=== PATIENT | female | born 1950 | race Caucasian/White ===

== ENCOUNTER → 2021-02-17 12:31 | Outpatient (CLI) | payer MEDICARE | END | disposition home or self-care (01) | LOC: D.RAD 12:31 | PROVIDERS: ATTEND Family Medicine | DX: I69.920 Aphasia following unspecified cerebrovascular disease (principal); I63.9 Cerebral infarction, unspecified ==

== ENCOUNTER → 2021-03-06 17:23 | Outpatient (CLI) | payer MEDICARE ==
[2021-03-06 19:09] LABS: BILIRUBIN NEGATIVE (NEGATIVE); KETONE SMALL mg/dL (NEGATIVE); NITRITE POSITIVE (NEGATIVE); UROBILINOGEN NORMAL mg/dL (< 2); WHITE CELLS - URINE 0-5 HPF (0-4)
[2021-03-06 19:10] LABS: BACTERIA MANY HPF (NONE SEEN); SQUAMOUS EPITHELIAL 0-5 HPF (0-4)
== END | disposition home or self-care (01) ==
LOC: D.LABREF 17:23
PROVIDERS: ATTEND Family Medicine
DX: R31.9 Hematuria, unspecified (principal)